=== PATIENT | male | born 1995 | race African-American/Black ===

== ENCOUNTER 2017-06-27 17:35 | Emergency (ER) | payer MEDICAID ==
[~2017-06-27 17:35] MED LIST: AMPH30TA9; AMPH30TA9 PO; ARI10 PO; ARIP30TA10 PO; DIPH-740 PO; LAMO100T56 PO; NEOPT TP; PRED20TA6 PO; QUET150T3 PO
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
[2017-06-27] MEDS ORDERED: ONDANSETRON 4 MG/2 ML VIAL IVP ONE (18:00)
[2017-06-27] MEDS ORDERED: DIPHTH/TETANUS/ACEL. PERTUSSIS IM ONLY ONE (18:00)
[2017-06-27 18:14] LABS: PLATELET COUNT, AUTOMATED 238 K/uL (150-450)
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
[2017-06-27 19:00] VITALS: BP 116/75
== END 2017-06-27 19:14 | disposition home or self-care (01) ==
LOC: ER 17:43
DX: S06.0X0A Concussion without loss of consciousness, initial encounter (principal)
CPT/HCPCS: 70450; 72125; 85025; 90471; 90715; 99284; L0172; 82040; 82247; 82310; 82374; 82435; 82565; 82947; 84075; 84132; 84155; 84295; 84450; 84460; 84520